=== PATIENT | male | born 1960 | race Caucasian/White ===

== ENCOUNTER 2019-11-04 01:00 | Emergency (ER) | payer SELFPAY ==
[~2019-11-04] VITALS: Ht 167.6 cm; Wt 113.4 kg
[2019-11-04 01:00] VITALS: BP_SYST 132
[2019-11-04] MEDS ORDERED: NACL 0.9% 1,000 ML IV ONE (01:14)
[2019-11-04] MEDS ORDERED: ASPIRIN 81 MG TAB.CHEW PO ONE (01:15)
[2019-11-04] MEDS ORDERED: NITROGLYCERIN 0.4 MG TAB.SUBL SL ONE (01:15)
[2019-11-04] MEDS ORDERED: CLOPIDOGREL BISULFATE 75 MG TABLET PO ONE (01:15)
[2019-11-04 01:29] LABS: BASOPHILS % (AUTO) 0.7 % (0.0-2.0); EOSINOPHILS # (AUTO) 0.1 K/uL (0.0-0.4); EOSINOPHILS % (AUTO) 1.2 % (0.0-4.0); HEMATOCRIT 41.7 % (36-54); HEMOGLOBIN 14.3 g/dL (14.0-18.0); LYMPHOCYTES # (AUTO) 1.1 K/uL (1.0-5.5); LYMPHOCYTES % (AUTO) 16.9 % (20.5-51.5); MEAN CORPUSCULAR HEMOGLOBIN 34 pg (27-31); MEAN CORPUSCULAR HGB CONC 34 % (32-36); MEAN CORPUSCULAR VOLUME 99 fL (79.0-98.0); MONOCYTES # (AUTO) 0.6 K/uL (0.0-1.0); MONOCYTES % (AUTO) 9.3 % (1.7-9.3); NEUTROPHILS # (AUTO) 4.6 K/uL (1.8-7.7); NEUTROPHILS % (AUTO) 71.9 % (40.0-70.0); PLATELET COUNT (AUTO) 193 K/uL (130-430); RED BLOOD CELL COUNT(AUTO) 4.23 MIL/uL (4.2-6.2); RED CELL DISTRIBUTION WIDTH 14.5 % (9.0-15.0); WHITE BLOOD COUNT (AUTO) 6.3 K/uL (4.8-10.8)
[2019-11-04] MEDS ORDERED: HEPARIN SODIUM,PORCINE 5000 UNITS/ML VIAL IVP ONE (01:30)
[2019-11-04] MEDS ORDERED: NITROGLYCERIN LINGUAL 400 mCg/SPRAY ONE (01:34)
[2019-11-04] MEDS ORDERED: ASPIRIN 81 MG TAB.CHEW ONE (01:35)
[2019-11-04] MEDS ORDERED: HEPARIN SODIUM,PORCINE 5000 UNITS/ML VIAL ONE (01:35)
[2019-11-04 01:40] VITALS: BP_SYST 121
[2019-11-04 02:02] LABS: CALCIUM 8.4 mg/dL (8.4-11.0); CREATININE 0.94 mg/dL (0.55-1.30); POTASSIUM 3.4 mmol/L (3.5-5.1)
[2019-11-04 02:07] LABS: ALBUMIN 3.7 g/dL (3.4-4.8); TOTAL BILIRUBIN 0.8 mg/dL (0.0-1.0)
== END 2019-11-04 01:40 | disposition short-term general hospital (02) ==
LOC: SED 01:00
DX: I21.09 ST elevation (STEMI) myocardial infarction involving other coronary artery of anterior wall (principal); I10 Essential (primary) hypertension; Z88.0 Allergy status to penicillin
CPT/HCPCS: 36415; 71045; 80053; 82550; 83690; 83880; 84484; 85025; 85610; 85730; 93005; 96374; 99285; J1644; J7030